=== PATIENT | male | born 1980 | race Caucasian/White ===

== ENCOUNTER 2022-05-08 20:23 | Emergency (ER) | payer OTHER, SELFPAY ==
--- NOTE | ~2022-05-08 | CT_ITS ---
EXAMINATION: CT HEAD WITHOUT CONTRAST CLINICAL INFORMATION: Delirium COMPARISON: None TECHNIQUE: Contiguous axial imaging was performed from the skull base to vertex without intravenous administration of contrast. This CT examination was performed using dose optimization techniques as appropriate, variously including the following: *Automated exposure control *Adjustment of mA and/or kV according to patient size (this includes techniques or standardized protocols for targeted exams where dose is matched to indication/reason for exam; i.e. extremities or head) *Use of iterative reconstruction technique DLP: 631 mGy-cm FINDINGS: There is no evidence of acute intracranial hemorrhage or territorial infarction. No abnormal mass effect or midline shift is seen. Otero to white matter differentiation is well preserved. No extra-axial fluid collections are identified. The ventricles are normal in size. There is no abnormal attenuation within the brain parenchyma. The osseous structures and soft tissues are normal. The mastoid air cells and visualized portions of the paranasal sinuses are well aerated. CT/CT head/brain wo con IMPRESSION: No acute intracranial pathology.
--- NOTE | ~2022-05-08 | XR_ITS ---
EXAMINATION: XR CHEST CLINICAL INFORMATION: Psychosis, not cooperative, leukocytosis. COMPARISON: None TECHNIQUE: Frontal view of the chest was obtained. FINDINGS: Linear/patchy airspace consolidation in the right midlung about the minor fissure. No additional focal airspace opacity. Lung volumes are slightly low. No pleural effusion or pneumothorax is seen. Cardiomediastinal silhouette and pulmonary vascularity are within normal limits. No acute osseous injury. XR/XR chest 1V IMPRESSION: 1. Patchy airspace opacity in the right midlung suspicious for pneumonia in the appropriate clinical scenario. No pleural fluid collection.
[2022-05-08 20:30] VITALS: BP 146/86; PULSE 77; RESP 18; TEMP 36.7; O2SAT 100; BMI 26.0
[2022-05-08 20:49] LABS: Appearance Urine CLEAR; Color Urine YELLOW; Glucose Urine UA NEG (NEG); Leukocyte Esterase Urine NEG (NEG); Nitrite Urine NEG (NEG); Specific Gravity - Urine 1.025 (1.005-1.025); Urine Blood NEG (NEG); Urine Ketones 5 MG/DL (NEG); Urine Protein TRACE MG/DL (NEG-TRACE)
[2022-05-08 21:04] LABS: COVID-19 Test Negative (Negative); IDNOW Serial# 16C4AD1C
[2022-05-08 21:06] LABS: Amphetamine Screen Urine Not Detected (Not Detect); Barbiturates, Urine Not Detected (Not Detect); Benzodiazepines Screen Urine POSITIVE (Not Detect); Cannabinoid Screen Urine Not Detected (Not Detect); Cocaine Screen Urine Not Detected (Not Detect); Fentanyl, urine POSITIVE (Not Detect); Opiate Screen Urine Not Detected (Not Detect); Phencyclidine Screen Urine Not Detected (Not Detect)
[2022-05-08 21:20] LABS: MANUAL DIFF FLAG NO
[2022-05-08 21:22] LABS: Basophils Absolute Auto 0.1 X10*3/uL (0.0-0.2); Basophils Percent Auto 0.3 % (0-2); Eosinophils Absolute Auto 0.2 X10*3/uL (0.0-0.4); Hematocrit 42.8 % (42.0-52.0); Hemoglobin 14.5 g/dl (14.0-18.0); Imm Gran Abs Auto 0.09 X10*3/uL (0.00-0.03); Imm Gran Pct Auto 0.5 % (0.0-0.4); Lymphocytes Absolute Auto 3.9 X10*3/uL (1.2-4.9); Lymphocytes Percent Auto 22.4 % (20-40); Mean Corpuscular HGB Conc 33.9 g/dl (31.0-36.0); Mean Corpuscular Hemoglobin 30.9 pg (27.0-33.0); Mean Corpuscular Volume 91.1 fL (80.0-98.0); Mean Platelet Volume 10.8 fL (9.4-12.4); Monocytes Absolute Auto 1.3 X10*3/uL (0.1-1.2); Monocytes Percent Auto 7.5 % (2-11); Neutrophils Percent Auto 68.3 % (45-73); Platelet Count 178 X10*3/uL (160-400); Red Cell Distribution Width 12.5 % (11.0-16.0); White Blood Count 17.5 X10*3/uL (4.8-10.8)
[2022-05-08 22:18] LABS: Ethanol < 10 mg/dL
[2022-05-08 22:25] LABS: Anion Gap 13 (12-20); Blood Urea Nitrogen 17 mg/dL (9-16); Calcium 9.2 mg/dL (8.4-10.2); Carbon Dioxide 25 mmol/L (22-29); Chloride 105 mmol/L (96-108); Creatinine Clr Calc Pharmacy 103.6; Estimated Glomerular Filt Rate > 60; Glucose Random 117 mg/dL (60-115); Potassium 4.2 mmol/L (3.3-5.1); Sodium 139 mmol/L (135-145)
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
[2022-05-08] MEDS: OLANZapine 5 MG TABLET PO (23:06)
[2022-05-09] VITALS (7 sets, daily range): BP systolic 135–143; BP diastolic 68–79; PULSE 52–62; RESP 17–18; TEMP 36.3
--- NOTE | 2022-05-09 | ECG_ITS ---
Test Reason : MEDICAL CLEARANCE Blood Pressure : / mmHG Vent. Rate : 060 BPM Atrial Rate : 060 BPM P-R Int : 140 ms QRS Dur : 088 ms QT Int : 416 ms P-R-T Axes : 056 063 071 degrees QTc Int : 416 ms Normal sinus rhythm with sinus arrhythmia Minimal voltage criteria for LVH, may be normal variant ( Sokolow-Flores ) Borderline ECG No previous ECGs available Referred By: Alejandrina Avalos Electronically Signed By:URSZULA FOX MD
[2022-05-09] MEDS: Haloperidol Lactate 5 MG/ML VIAL IM (00:45)
[2022-05-09] MEDS: diphenhydrAMINE HCL 50 MG/ML VIAL IM (00:55)
[2022-05-09] MEDS: LORazepam 2 MG/ML VIAL IM (00:55)
--- NOTE | 2022-05-09 01:02 | PC.NURSE ---
Increased aggression, threatening roommate, non [id number], patient is paranoid delusional, exit seeking, provider notified/ordered ativan 2 mg IM and Haldol 5 mg IM, and Benadryl 50 mg IM, at 0055 pending effect, patient is on 1:1 for safety observation, will continue to monitor.
[2022-05-09] MEDS: OLANZapine 10 MG VIAL IM (01:45)
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
[2022-05-09] MEDS: OLANZapine 5 MG TABLET PO ×4 (07:13→22:15)
[2022-05-09] MEDS: Buprenorphine/Naloxone 12/3 mg FILM 1 FILM SUBLINGUAL (10:34)
--- NOTE | 2022-05-09 11:28 | PHA.MEDREC ---
Pharmacy Consult ? Medication Reconciliation Pharmacy has completed the medication reconciliation. Contacted [facility] for medications. The reported patient had no home medications. Patient was started on suboxone while inpatient and they have titrated him up to Suboxone 12-3mg. They also report patient was on CIWA protocol with valium. Zuleyma Paiz, [place]
[2022-05-09] MEDS: diphenhydrAMINE HCL 25 MG TABLET 50 MG PO (11:29)
--- NOTE | 2022-05-09 11:31 | PC.NURSE ---
pt is frequently ambulating out of pt room, not redirectable, pt is attempting to climb on nurses station counter, pushing staff when asked to get down. this rn removing pt from counter, security called for assistance. pt taking ordered po meds without issue.
--- NOTE | 2022-05-09 11:38 | PM.PSYCN ---
History of Present Illness Date of Service: 05/09/2022 Chief Complaint: crisis Reason for Consult: psychosis Requesting physician: Trinity Ibrahim Discussed with referring provider: Yes Sources of Information: patient interviewed, chart reviewed and crisis/core team assessment reviewed HPI Narrative: Pt sent from [facility] detox program due to pt presenting with alter mental status, confused stating he was on a boat in [place]. Utox positive for fentanyl, benzodiazepine. Pt continues to present with poor attention, grabbing things that are not there, walking around BH pod purposelessly. Pt reports he knows he is in [place]. Pt unable to answer most questions as his attention is poor and he is very disorganized. he proceeds to grab sheets from his bed. Past Psychiatric History: Inpatient: unknown Medical Evaluation Reviewed: Yes Diagnostics Vital Signs (24Hr): Vital Signs - 24 hr 05/08/22 20:30 05/09/22 00:55 05/09/22 01:10 Temperature 98.1 F Pulse Rate 77 Respiratory Rate 18 18 18 Blood Pressure 146/86 H Pulse Oximetry 100 Oxygen Delivery Method Room Air 05/09/22 01:25 05/09/22 01:40 05/09/22 01:55 Temperature Pulse Rate Respiratory Rate 17 17 17 Blood Pressure Pulse Oximetry Oxygen Delivery Method 05/09/22 07:32 Temperature 97.4 F Pulse Rate 52 Respiratory Rate 17 Blood Pressure 143/68 H Pulse Oximetry Oxygen Delivery Method BMI result Body Mass Index 26.0 Labs Results: 05/08/22 21:16 05/08/22 21:16 Labs: Laboratory Results - last 48 hr 05/08/22 05/08/22 05/08/22 20:41 20:42 20:42 WBC RBC Hgb Hct MCV MCH MCHC RDW Plt Count MPV Immature Gran % (Auto) Neut % (Auto) Lymph % (Auto) [place] % (Auto) Eos % (Auto) Baso % (Auto) Lymph # (Auto) [place] # (Auto) Eos # (Auto) Baso # (Auto) Abs Immat Gran (auto) Absolute Neuts (auto) Absolute Nucleated RBC Nucleated RBC % (auto) Sodium Potassium Chloride Carbon Dioxide Anion Gap BUN Creatinine Estim Creat Clear Calc Estimated GFR Random Glucose Calcium Urine Color YELLOW Urine Appearance CLEAR Urine pH 6.0 Ur Specific [place] 1.025 Urine Protein TRACE Urine Glucose (UA) NEG Urine Ketones 5 Urine Blood NEG Urine Nitrite NEG Ur Leukocyte Esterase NEG Urine Opiates Screen Not Detected Urine Fentanyl Screen POSITIVE H Ur Barbiturates Screen Not Detected Ur Phencyclidine Scrn Not Detected Ur Amphetamines Screen Not Detected U Benzodiazepines Scrn POSITIVE H Urine Cocaine Screen Not Detected U Marijuana (THC) Screen Not Detected Ethyl Alcohol COVID-19 (FAZAL) Negative COVID-19 Clin Com See Note 05/08/22 05/08/22 05/08/22 21:16 21:16 21:16 WBC 17.5 H RBC 4.70 Hgb 14.5 Hct 42.8 MCV 91.1 MCH 30.9 MCHC 33.9 RDW 12.5 Plt Count 178 MPV 10.8 Immature Gran % (Auto) 0.5 H Neut % (Auto) 68.3 Lymph % (Auto) 22.4 [place] % (Auto) 7.5 Eos % (Auto) 1.0 Baso % (Auto) 0.3 Lymph # (Auto) 3.9 [place] # (Auto) 1.3 H Eos # (Auto) 0.2 Baso # (Auto) 0.1 Abs Immat Gran (auto) 0.09 H Absolute Neuts (auto) 12.0 H Absolute Nucleated RBC 0.000 Nucleated RBC % (auto) 0.0 Sodium 139 Potassium 4.2 Chloride 105 Carbon Dioxide 25 Anion Gap 13 BUN 17 H Creatinine 1.04 Estim Creat Clear Calc 103.6 Estimated GFR > 60 Random Glucose 117 H Calcium 9.2 Urine Color Urine Appearance Urine pH Ur Specific [place] Urine Protein Urine Glucose (UA) Urine Ketones Urine Blood Urine Nitrite Ur Leukocyte Esterase Urine Opiates Screen Urine Fentanyl Screen Ur Barbiturates Screen Ur Phencyclidine Scrn Ur Amphetamines Screen U Benzodiazepines Scrn Urine Cocaine Screen U Marijuana (THC) Screen Ethyl Alcohol < 10 COVID-19 (FAZAL) COVID-19 Clin Com Imaging Radiology Impressions: ITS Impressions Chest X-Ray 05/08/22 22:40 IMPRESSION: 1. Patchy airspace opacity in the right midlung suspicious for pneumonia in the appropriate clinical scenario. No pleural fluid collection. Mental Status Exam Mental Status Exam Narrative: Appearance: wearing hospital gown, disheveled, pacing, restless Behavior:disorganized, minimal awareness of surrounding of presence of this content writer psychomotor:pacing Speech:mumbling, rambling at times with few clear words, of course I know where I am! I'm in [place] Thought process:disorganized Thought content:disoriented, wanting to go Mood:unable to assess Affect: somnolent SI:unable to assess HI:unable to assess VH/AH:appears internally preoccupied Delusions:disorganized- confused Insight/judgment:impaired x 2. Memory/cog: alert, not oriented to place, month, year, situation Medications Medications Current Medications Buprenorphine/Naloxone (Buprenorphine/Naloxone 12/3 Mg Film) 1 film BUCCAL DAILY LYNETTE Doxycycline Hyclate (Doxycycline Hyclate 100 Mg Tablet) 100 mg PO BID LYNETTE Last Admin: 05/09/22 07:13 Dose: 100 mg Olanzapine (Olanzapine 5 Mg Tablet) 5 mg PO Q6H PRN PRN Reason: Psychosis Last Admin: 05/09/22 07:13 Dose: 5 mg Olanzapine (Olanzapine 10 Mg Tablet) 10 mg PO ONCE PRN PRN Reason: anxiety/restlessness Pharmacy Consult (Consult Rx Perform Med Rec) 1 each MISCELLANE ONCE PRN PRN Reason: Consult order Allergies Allergies Allergy/AdvReac Type Severity Reaction Status Date / Time No Known Allergies Allergy Verified 05/08/22 20:42 Assessment & Plan Assessment & Plan (1) Delirium: Status: Acute Code(s): R41.0 - Disorientation, unspecified Plan Mr. Montero presents with s/s of agitated delirium, including poor attention, disorientation, fluctuation in cognition. r/o delirium due to benzodiazepine withdrawal r/o other causes of delirium PLAN 1. Start modified benzo taper with clonazepam 1mg po BID, add low dose of haldol for psychosis 2.5mg po BID 2. Obtain EKG 3. consider head CT 4. minimize benadryl and other antihistamine and anticholigergic use due to increase in confusion. I spent __25____ minutes with the patient and/or on the patient floor today, greater than?50% of which was spent counseling/coordinating care. Informed Consent: does not understand (currently does not appear to have capacity to make medical and other decisions due to AMS.)
[2022-05-09] MEDS: clonazePAM 1 MG TABLET PO ×2 (11:44→22:12)
[2022-05-09 13:51] LABS: MANUAL DIFF FLAG NO
[2022-05-09 13:52] LABS: Basophils Percent Auto 0.2 % (0-2); Eosinophils Absolute Auto 0.1 X10*3/uL (0.0-0.4); Eosinophils Percent Auto 1.1 % (0-4); Hematocrit 42.6 % (42.0-52.0); Hemoglobin 14.5 g/dl (14.0-18.0); Imm Gran Abs Auto 0.06 X10*3/uL (0.00-0.03); Imm Gran Pct Auto 0.5 % (0.0-0.4); Lymphocytes Absolute Auto 4.1 X10*3/uL (1.2-4.9); Lymphocytes Percent Auto 31.7 % (20-40); Mean Corpuscular Volume 91.2 fL (80.0-98.0); Mean Platelet Volume 11.1 fL (9.4-12.4); Monocytes Absolute Auto 0.7 X10*3/uL (0.1-1.2); Monocytes Percent Auto 5.7 % (2-11); Neutrophils Absolute Auto 7.8 x10*3/uL (2.0-8.3); Neutrophils Percent Auto 60.8 % (45-73); Platelet Count 182 X10*3/uL (160-400); Red Blood Count 4.67 X10*6/uL (4.60-5.80); Red Cell Distribution Width 12.8 % (11.0-16.0); White Blood Count 12.9 X10*3/uL (4.8-10.8)
--- NOTE | 2022-05-09 14:09 | PC.NURSE ---
girlfriend at bedside for visitation.
[2022-05-09 14:12] LABS: Alanine Aminotransferase 18 U/L (0-40); Albumin Level 4.5 g/dL (3.5-5.0); Alkaline Phosphatase 66 U/L (39-117); Anion Gap 14 (12-20); Aspartate Amino Transferase 27 U/L (5-37); Bilirubin Total 0.4 mg/dL (0.0-1.0); Blood Urea Nitrogen 12 mg/dL (9-16); Calcium 9.4 mg/dL (8.4-10.2); Carbon Dioxide 23 mmol/L (22-29); Chloride 108 mmol/L (96-108); Creatinine Clr Calc Pharmacy 118.4; Estimated Glomerular Filt Rate > 60; Glucose Random 120 mg/dL (60-115); Potassium 3.8 mmol/L (3.3-5.1); Sodium 141 mmol/L (135-145); Total Protein 7.4 g/dL (6.5-8.0)
[2022-05-09 14:34] LABS: Syphilis Screen Nonreactive (Nonreactive)
--- NOTE | 2022-05-09 15:12 | PC.NURSE ---
Andria is pts girlfriend and contact lens blocker [phone]
[2022-05-09] MEDS: Benztropine Mesylate 1 MG TABLET PO (22:13)
[2022-05-09] MEDS: HaloperidoL 0.5 MG TABLET 2.5 MG PO (23:00)
[2022-05-10 04:43] LABS: HIV AB/AG Nonreactive (Nonreactive); HIV Num 1 0.07 S/CO (0.00-0.99)
[2022-05-10] MEDS: OLANZapine 5 MG TABLET PO (05:47)
--- NOTE | 2022-05-10 05:48 | PC.NURSE ---
Patient currently in bed appears sleeping, patient slept 3 hours until now, Olanzapine 5 mg PRN administered at 2212 and 0547 with positive effect, patient compliant with night time medication, patient is not a crises patient at this time per applied psychology chair see note, patient is medical suffering from acute delirium from benzodiazepam withdrawal, thought content disorganized with scattered cognition, patient is on 1:1 for safety, VSS, will continue to monitor.
[2022-05-10 10:38] VITALS: BP 140/87; PULSE 88; RESP 14; TEMP 36.6; O2SAT 98
[2022-05-10] MEDS: Buprenorphine/Naloxone 12/3 mg FILM 1 FILM BUCCAL (10:39)
[2022-05-10] MEDS: clonazePAM 1 MG TABLET PO ×2 (10:40→21:10)
[2022-05-10] MEDS: HaloperidoL 0.5 MG TABLET 2.5 MG PO ×2 (10:40→21:10)
--- NOTE | 2022-05-10 13:34 | PC.NURSE ---
Pt remains asleep. RR even and unlabored. Pt does not appear diaphoretic and appears comfortable. Will allow to continue to sleep at this time and continue to monitor. Lunch delivered bedside at this time
--- NOTE | 2022-05-10 15:21 | P.CNPS_ITS ---
History of Present Illness Date of Service: 05/10/2022 Chief Complaint: crisis Requesting physician: Trinity Ibrahim Discussed with referring provider: Yes HPI Narrative: Interim HX: pt presents as much more organized and oriented. Pt reports he knows he is at [facility]- yesterday pt was telling this typewriters functional tester he was in [place], trying to go on a boat and grabbing objects that were not there. Pt able to report that he was transferred to this hospital from [facility] where he was receiving detox treatment for opioid, unclear if for benzo withdrawal. Pt reports I have never had mental issues. This typewriters functional tester explained that he appeared to present with delirium, most likely related to complicated benzo withdrawal and that this is typically medical condition rather than sign of new onset psychiatric illness. Pt reports using a lot of clonazepam and xanax, but unable to provide more information as to mg/day of each. Pt reports he does not remember much as to how he was behaving or presenting in ED days prior. He reports feeling tired, and somnolent. Past Psychiatric History: Inpatient: unknown Review of Systems Review of Systems Yes Unobtainable due to mental status Diagnostics Vital Signs (24Hr): Vital Signs - 24 hr 05/09/22 17:59 05/10/22 10:38 Temperature 97.9 F Pulse Rate 62 88 Respiratory Rate 18 14 Blood Pressure 135/79 140/87 H Pulse Oximetry 98 Oxygen Delivery Method Room Air BMI result Body Mass Index 26.0 Labs Results: 05/09/22 13:45 05/09/22 13:45 Labs: Laboratory Results - last 48 hr 05/08/22 05/08/22 05/08/22 20:41 20:42 20:42 WBC RBC Hgb Hct MCV MCH MCHC RDW Plt Count MPV Immature Gran % (Auto) Neut % (Auto) Lymph % (Auto) [place] % (Auto) Eos % (Auto) Baso % (Auto) Lymph # (Auto) [place] # (Auto) Eos # (Auto) Baso # (Auto) Abs Immat Gran (auto) Absolute Neuts (auto) Absolute Nucleated RBC Nucleated RBC % (auto) Sodium Potassium Chloride Carbon Dioxide Anion Gap BUN Creatinine Estim Creat Clear Calc Estimated GFR Random Glucose Calcium Total Bilirubin AST ALT Alkaline Phosphatase Total Protein Albumin Urine Color YELLOW Urine Appearance CLEAR Urine pH 6.0 Ur Specific [place] 1.025 Urine Protein TRACE Urine Glucose (UA) NEG Urine Ketones 5 Urine Blood NEG Urine Nitrite NEG Ur Leukocyte Esterase NEG Urine Opiates Screen Not Detected Urine Fentanyl Screen POSITIVE H Ur Barbiturates Screen Not Detected Ur Phencyclidine Scrn Not Detected Ur Amphetamines Screen Not Detected U Benzodiazepines Scrn POSITIVE H Urine Cocaine Screen Not Detected U Marijuana (THC) Screen Not Detected Ethyl Alcohol T.pallidum Ab (EIA) COVID-19 (FAZAL) Negative COVID-19 Clin Com See Note HIV 1&2 Ab/P24 Ag 4thGn 05/08/22 05/08/22 05/08/22 21:16 21:16 21:16 WBC 17.5 H RBC 4.70 Hgb 14.5 Hct 42.8 MCV 91.1 MCH 30.9 MCHC 33.9 RDW 12.5 Plt Count 178 MPV 10.8 Immature Gran % (Auto) 0.5 H Neut % (Auto) 68.3 Lymph % (Auto) 22.4 [place] % (Auto) 7.5 Eos % (Auto) 1.0 Baso % (Auto) 0.3 Lymph # (Auto) 3.9 [place] # (Auto) 1.3 H Eos # (Auto) 0.2 Baso # (Auto) 0.1 Abs Immat Gran (auto) 0.09 H Absolute Neuts (auto) 12.0 H Absolute Nucleated RBC 0.000 Nucleated RBC % (auto) 0.0 Sodium 139 Potassium 4.2 Chloride 105 Carbon Dioxide 25 Anion Gap 13 BUN 17 H Creatinine 1.04 Estim Creat Clear Calc 103.6 Estimated GFR > 60 Random Glucose 117 H Calcium 9.2 Total Bilirubin AST ALT Alkaline Phosphatase Total Protein Albumin Urine Color Urine Appearance Urine pH Ur Specific [place] Urine Protein Urine Glucose (UA) Urine Ketones Urine Blood Urine Nitrite Ur Leukocyte Esterase Urine Opiates Screen Urine Fentanyl Screen Ur Barbiturates Screen Ur Phencyclidine Scrn Ur Amphetamines Screen U Benzodiazepines Scrn Urine Cocaine Screen U Marijuana (THC) Screen Ethyl Alcohol < 10 T.pallidum Ab (EIA) COVID-19 (FAZAL) COVID-19 Clin Com HIV 1&2 Ab/P24 Ag 4thGn 05/09/22 05/09/22 05/09/22 13:45 13:45 13:45 WBC 12.9 H RBC 4.67 Hgb 14.5 Hct 42.6 MCV 91.2 MCH 31.0 MCHC 34.0 RDW 12.8 Plt Count 182 MPV 11.1 Immature Gran % (Auto) 0.5 H Neut % (Auto) 60.8 Lymph % (Auto) 31.7 [place] % (Auto) 5.7 Eos % (Auto) 1.1 Baso % (Auto) 0.2 Lymph # (Auto) 4.1 [place] # (Auto) 0.7 Eos # (Auto) 0.1 Baso # (Auto) 0.0 Abs Immat Gran (auto) 0.06 H Absolute Neuts (auto) 7.8 Absolute Nucleated RBC 0.000 Nucleated RBC % (auto) 0.0 Sodium Potassium Chloride Carbon Dioxide Anion Gap BUN Creatinine Estim Creat Clear Calc Estimated GFR Random Glucose Calcium Total Bilirubin AST ALT Alkaline Phosphatase Total Protein Albumin Urine Color Urine Appearance Urine pH Ur Specific [place] Urine Protein Urine Glucose (UA) Urine Ketones Urine Blood Urine Nitrite Ur Leukocyte Esterase Urine Opiates Screen Urine Fentanyl Screen Ur Barbiturates Screen Ur Phencyclidine Scrn Ur Amphetamines Screen U Benzodiazepines Scrn Urine Cocaine Screen U Marijuana (THC) Screen Ethyl Alcohol T.pallidum Ab (EIA) Nonreactive COVID-19 (FAZAL) COVID-19 Clin Com HIV 1&2 Ab/P24 Ag 4thGn Nonreactive 05/09/22 13:45 WBC RBC Hgb Hct MCV MCH MCHC RDW Plt Count MPV Immature Gran % (Auto) Neut % (Auto) Lymph % (Auto) [place] % (Auto) Eos % (Auto) Baso % (Auto) Lymph # (Auto) [place] # (Auto) Eos # (Auto) Baso # (Auto) Abs Immat Gran (auto) Absolute Neuts (auto) Absolute Nucleated RBC Nucleated RBC % (auto) Sodium 141 Potassium 3.8 Chloride 108 Carbon Dioxide 23 Anion Gap 14 BUN 12 Creatinine 0.91 Estim Creat Clear Calc 118.4 Estimated GFR > 60 Random Glucose 120 H Calcium 9.4 Total Bilirubin 0.4 AST 27 ALT 18 Alkaline Phosphatase 66 Total Protein 7.4 Albumin 4.5 Urine Color Urine Appearance Urine pH Ur Specific [place] Urine Protein Urine Glucose (UA) Urine Ketones Urine Blood Urine Nitrite Ur Leukocyte Esterase Urine Opiates Screen Urine Fentanyl Screen Ur Barbiturates Screen Ur Phencyclidine Scrn Ur Amphetamines Screen U Benzodiazepines Scrn Urine Cocaine Screen U Marijuana (THC) Screen Ethyl Alcohol T.pallidum Ab (EIA) COVID-19 (FAZAL) COVID-19 Clin Com HIV 1&2 Ab/P24 Ag 4thGn Imaging Radiology Impressions: ITS Impressions Chest X-Ray 05/08/22 22:40 IMPRESSION: 1. Patchy airspace opacity in the right midlung suspicious for pneumonia in the appropriate clinical scenario. No pleural fluid collection. Head CT 05/09/22 14:51 IMPRESSION: No acute intracranial pathology. Mental Status Exam Mental Status Exam Narrative: Appearance: wearing hospital gown, in bed, somnolent but in NAD Behavior:cooperative limited by pt feeling tired and sleepy psychomotor:no significant agitation or retardation Speech: clear, no significant delayed in responses, regular tone/rhythm, spontaneous Thought process: more organized and linear Thought content:feeling tired, surprise by changes in mentation which he reports does not remember much Mood: tired Affect: somnolent SI:denies HI:denies VH/AH:none Delusions:no overt delusional content noted or reported. Insight/judgment:improving x 2. Memory/cog: alert, orientation significantly improving in terms of pt knowing where he is, why, month, year, month. Medications Medications Current Medications Benztropine Mesylate (Benztropine Mesylate 1 Mg Tablet) 1 mg PO BID PRN PRN Reason: akathesia Last Admin: 05/09/22 22:13 Dose: 1 mg Buprenorphine/Naloxone (Buprenorphine/Naloxone 12/3 Mg Film) 1 film BUCCAL DAILY [facility] Last Admin: 05/10/22 10:39 Dose: 1 film Clonazepam (Clonazepam 1 Mg Tablet) 1 mg PO BID [facility] Last Admin: 05/10/22 10:40 Dose: 1 mg Doxycycline Hyclate (Doxycycline Hyclate 100 Mg Tablet) 100 mg PO BID [facility] Last Admin: 05/10/22 10:40 Dose: 100 mg Haloperidol (Haloperidol 0.5 Mg Tablet) 2.5 mg PO BID [facility] Last Admin: 05/10/22 10:40 Dose: 2.5 mg Olanzapine (Olanzapine 5 Mg Tablet) 5 mg PO Q6H PRN PRN Reason: Psychosis Last Admin: 05/10/22 05:47 Dose: 5 mg Pharmacy Consult (Consult Rx Perform Med Rec) 1 each MISCELLANE ONCE PRN PRN Reason: Consult order Allergies Allergies Allergy/AdvReac Type Severity Reaction Status Date / Time No Known Allergies Allergy Verified 05/08/22 20:42 Assessment & Plan Assessment & Plan (1) Delirium: Status: Acute Code(s): R41.0 - Disorientation, unspecified Plan Mr. Montero presents with s/s of agitated delirium, including poor attention, disorientation, fluctuation in cognition. r/o delirium due to benzodiazepine withdrawal r/o other causes of delirium PLAN 1. Start modified benzo taper with clonazepam 1mg po BID, add low dose of haldol for psychosis 2.5mg po BID 2. Obtain EKG 3. consider head CT 4. minimize benadryl and other antihistamine and anticholigergic use due to increase in confusion. 05/10- pt presents as more organized, oriented to place, situation, month, year, which he was not yesterday. No overt signs of psychosis or delusional content reported. Pt reports feeling tired, somewhat somnolent. Delirium gradually resolving, at this point most likely related to benzo withdrawal. Otherwise, CBC- showing WBC trending down, CMP wnl. Head CT does not show any acute pathology. I spent _25 minutes with the patient and/or on the patient floor today, greater than?50% of which was spent counseling/coordinating care.
--- NOTE | 2022-05-10 15:47 | MHC.CARE ---
Spoke to patient's girlfriend, Leny [phone] and provided her update that patient's symptoms are improving but will stay one more day to ensure he is stabilized. She stated that would like to remind staff she prefers to be the only one to coal picker him up when ready for discharge as she is concerned that one of the people he was using drugs with and have been exploiting patient may try to get him before she can get here. She would like to speak with patient when he is alert enough, was not today so far.
--- NOTE | 2022-05-10 16:15 | PC.NURSE ---
GF ROSTR phone number [phone]
--- NOTE | 2022-05-11 06:38 | PC.NURSE ---
Patient slept through the night, no distress observed/reported, medication compliant, thought content clear and thought process coherent, behavior appropriate, patient showered, VSS, plan to d/c today pending psych reassessment, will continue to monitor.
[2022-05-11 06:55] VITALS: BP 153/87; PULSE 80; RESP 15; TEMP 36.2; O2SAT 97
[2022-05-11] MEDS: clonazePAM 1 MG TABLET PO (09:00)
[2022-05-11] MEDS: Buprenorphine/Naloxone 12/3 mg FILM 1 FILM BUCCAL (09:00)
--- NOTE | 2022-05-11 09:04 | PC.NURSE ---
pt medicated (routine). Alert and responsive, states feeling better but not sure what's going on or what happened. . Continuing to monitor.
[2022-05-11] MEDS: HaloperidoL 0.5 MG TABLET 2.5 MG PO (09:11)
--- NOTE | 2022-05-11 09:19 | PC.NURSE ---
spoke with Care team. Pt likely to be d/c'd today after eval by PMHNP. Patient aware of plan.
[2022-05-11] MEDS: Benztropine Mesylate 1 MG TABLET PO (10:42)
--- NOTE | 2022-05-11 10:42 | PM.PSYCN ---
History of Present Illness Date of Service: 05/11/2022 Chief Complaint: crisis Reason for Consult: delirium Discussed with referring provider: Yes Sources of Information: patient interviewed, chart reviewed and crisis/core team assessment reviewed HPI Narrative: Interim Hx: Pt much more alert, fully oriented to place, situation, month, year. He is concerned about episode of confusion and asks appropriate questions regarding his condition. 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 Pt offerred to be referred to substance use treatment programs, but he declines. He denies SI/HI. He asks to be discharged home with GF. Past Psychiatric History: Inpatient: unknown Medical Evaluation Reviewed: Yes Review of Systems Review of Systems Yes Unobtainable due to mental status Diagnostics Vital Signs (24Hr): Vital Signs - 24 hr 05/11/22 06:55 Temperature 97.2 F Pulse Rate 80 Respiratory Rate 15 Blood Pressure 153/87 H Pulse Oximetry 97 Oxygen Delivery Method Room Air BMI result Body Mass Index 26.0 Labs Results: 05/09/22 13:45 05/09/22 13:45 Labs: Laboratory Results - last 48 hr 05/09/22 05/09/22 05/09/22 13:45 13:45 13:45 WBC 12.9 H RBC 4.67 Hgb 14.5 Hct 42.6 MCV 91.2 MCH 31.0 MCHC 34.0 RDW 12.8 Plt Count 182 MPV 11.1 Immature Gran % (Auto) 0.5 H Neut % (Auto) 60.8 Lymph % (Auto) 31.7 [place] % (Auto) 5.7 Eos % (Auto) 1.1 Baso % (Auto) 0.2 Lymph # (Auto) 4.1 [place] # (Auto) 0.7 Eos # (Auto) 0.1 Baso # (Auto) 0.0 Abs Immat Gran (auto) 0.06 H Absolute Neuts (auto) 7.8 Absolute Nucleated RBC 0.000 Nucleated RBC % (auto) 0.0 Sodium Potassium Chloride Carbon Dioxide Anion Gap BUN Creatinine Estim Creat Clear Calc Estimated GFR Random Glucose Calcium Total Bilirubin AST ALT Alkaline Phosphatase Total Protein Albumin T.pallidum Ab (EIA) Nonreactive HIV 1&2 Ab/P24 Ag 4thGn Nonreactive 05/09/22 13:45 WBC RBC Hgb Hct MCV MCH MCHC RDW Plt Count MPV Immature Gran % (Auto) Neut % (Auto) Lymph % (Auto) [place] % (Auto) Eos % (Auto) Baso % (Auto) Lymph # (Auto) [place] # (Auto) Eos # (Auto) Baso # (Auto) Abs Immat Gran (auto) Absolute Neuts (auto) Absolute Nucleated RBC Nucleated RBC % (auto) Sodium 141 Potassium 3.8 Chloride 108 Carbon Dioxide 23 Anion Gap 14 BUN 12 Creatinine 0.91 Estim Creat Clear Calc 118.4 Estimated GFR > 60 Random Glucose 120 H Calcium 9.4 Total Bilirubin 0.4 AST 27 ALT 18 Alkaline Phosphatase 66 Total Protein 7.4 Albumin 4.5 T.pallidum Ab (EIA) HIV 1&2 Ab/P24 Ag 4thGn Imaging Radiology Impressions: ITS Impressions Chest X-Ray 05/08/22 22:40 IMPRESSION: 1. Patchy airspace opacity in the right midlung suspicious for pneumonia in the appropriate clinical scenario. No pleural fluid collection. Head CT 05/09/22 14:51 IMPRESSION: No acute intracranial pathology. Mental Status Exam Mental Status Exam Narrative: Appearance: wearing hospital gown, in bed, improved hygiene in NAD Behavior:cooperative psychomotor:no significant agitation or retardation Speech: clear, regular rate/tone/rhythm, spontaneous Thought process: more organized and linear Thought content:feeling tired, surprise by changes in mentation which he reports does not remember much Mood: better Affect: brighter SI:denies HI:denies VH/AH:none Delusions:no overt delusional content noted or reported. Insight/judgment:improving x 2. Memory/cog: alert, orientation significantly improving in terms of pt knowing where he is, why, month, year, month. Medications Medications Current Medications Benztropine Mesylate (Benztropine Mesylate 1 Mg Tablet) 1 mg PO BID PRN PRN Reason: akathesia Last Admin: 05/09/22 22:13 Dose: 1 mg Buprenorphine/Naloxone (Buprenorphine/Naloxone 12/3 Mg Film) 1 film BUCCAL DAILY [facility] Last Admin: 05/11/22 09:00 Dose: 1 film Doxycycline Hyclate (Doxycycline Hyclate 100 Mg Tablet) 100 mg PO BID [facility] Last Admin: 05/11/22 09:00 Dose: 100 mg Olanzapine (Olanzapine 5 Mg Tablet) 5 mg PO Q6H PRN PRN Reason: Psychosis Last Admin: 05/10/22 05:47 Dose: 5 mg Pharmacy Consult (Consult Rx Perform Med Rec) 1 each MISCELLANE ONCE PRN PRN Reason: Consult order Allergies Allergies Allergy/AdvReac Type Severity Reaction Status Date / Time No Known Allergies Allergy Verified 05/08/22 20:42 Assessment & Plan Assessment & Plan (1) Delirium: Status: Acute Code(s): R41.0 - Disorientation, unspecified Plan Mr. Montero presents with s/s of agitated delirium, including poor attention, disorientation, fluctuation in cognition. r/o delirium due to benzodiazepine withdrawal r/o other causes of delirium PLAN 1. Start modified benzo taper with clonazepam 1mg po BID, add low dose of haldol for psychosis 2.5mg po BID 2. Obtain EKG 3. consider head CT 4. minimize benadryl and other antihistamine and anticholigergic use due to increase in confusion. 05/10- pt presents as more organized, oriented to place, situation, month, year, which he was not yesterday. No overt signs of psychosis or delusional content reported. Pt reports feeling tired, somewhat somnolent. Delirium gradually resolving, at this point most likely related to benzo withdrawal. Otherwise, CBC- showing WBC trending down, CMP wnl. Head CT does not show any acute pathology. 05/11 delirum most likely related to benzo withdrawal has completely resolved. Pt fully oriented, logical conversation. No SI/HI. Does not want referrals for substance use treatment options. GIVE NARCAN ON DISCHARGE. I spent __25____ minutes with the patient and/or on the patient floor today, greater than?50% of which was spent counseling/coordinating care.
--- NOTE | 2022-05-11 11:02 | PC.NURSE ---
Pt to be picked up today at 1500h by s/o Andria.
[2022-05-11] MEDS: Naloxone HCl Nasal TAKE HOME 4 MG SPRAY NOSTRILALT (11:33)
[2022-05-11 13:04] VITALS: BP 136/81; PULSE 74; RESP 18; TEMP 36.6; O2SAT 98
== END 2022-05-11 15:39 | disposition home or self-care (01) ==
PROVIDERS: Social Worker; Emergency Provider Internal Medicine; PCP Internal Medicine
DX: J18.9 Pneumonia, unspecified organism (principal); F23 Brief psychotic disorder; R07.89 Other chest pain; D72.829 Elevated white blood cell count, unspecified; R41.0 Disorientation, unspecified; Z20.822 Contact with and (suspected) exposure to COVID-19; Z79.899 Other long term (current) drug therapy
CPT/HCPCS: 36415; 70450; 71045; 80048; 80053; 80307; 81003; 82077; 85025; 86780; 87389; 87635; 93005; 96372; 99285; J1200; J2060; Q0163